=== PATIENT | male | born 1950 | race Caucasian/White ===

== ENCOUNTER 2020-12-05 10:25 | Observation (INO) | payer MEDICARE, BC ==
[~2020-12-05] VITALS: Ht 170.2 cm; Wt 75.6 kg
[2020-12-05] MEDS ORDERED: PLEASE ENTER ALLERGIES MC SCH (12:30)
[2020-12-05] MEDS: SODIUM CHLORIDE 0.9% 1,000 ML IV SCH ×2 (12:30→21:40)
[2020-12-05] MEDS ORDERED: CEFAZOLIN PMX 1GM/50ML 50 ML IVPB ONE (12:30)
[2020-12-05] MEDS ORDERED: PLEASE ENTER HEIGHT AND WEIGHT MC SCH (12:30)
[2020-12-05] MEDS ORDERED: ASPI81TA45 PO (12:40)
[2020-12-05] MEDS ORDERED: TORS20TA2 PO (12:40)
[2020-12-05] MEDS ORDERED: SPIR25TA5 PO (12:40)
[2020-12-05] MEDS ORDERED: CARV12.52 PO (12:40)
[2020-12-05] MEDS ORDERED: POTA10TA PO (12:40)
[2020-12-05] MEDS ORDERED: OMEG-170 PO (12:40)
[2020-12-05] MEDS ORDERED: TERA2CAP3 PO (12:40)
[2020-12-05] MEDS ORDERED: ROSU5TAB PO (12:40)
[2020-12-05] MEDS ORDERED: CHOL10003 PO (12:40)
[2020-12-05] MEDS ORDERED: MULT-717 PO (12:40)
[2020-12-05] MEDS ORDERED: WARF7.5T46 PO (12:40)
[2020-12-05] MEDS ORDERED: MAGN400T36 PO (12:45)
[2020-12-05] MEDS ORDERED: METF500T17 PO (12:45)
[2020-12-05] MEDS ORDERED: FLUT1AER INH (12:45)
[2020-12-05 12:50] VITALS: BP 112/72
[2020-12-05 13:25] LABS: BASOPHILS % (AUTO) 1 % (0-1); EOSINOPHILS % (AUTO) 2 % (1-7); LYMPHOCYTES % (AUTO) 25 % (22-44); MEAN CORPUSCULAR HEMOGLOBIN 29.1 pg (27.5-34.5); MEAN CORPUSCULAR HGB CONC 34.2 g/dL (33.2-36.2); MONOCYTES % (AUTO) 9 % (2-9); NEUTROPHILS % (AUTO) 64 % (42-75); PLATELET COUNT 183 x10^3/uL (130-400); RED BLOOD COUNT 5.17 x10^6/uL (4.38-5.82)
[2020-12-05 13:33] LABS: ANION GAP 8 mmol/L (5-15); CALCIUM 8.7 mg/dL (8.5-10.1); CHLORIDE 103 mmol/L (98-107); CREATININE 0.89 mg/dL (0.7-1.3); INTERNATIONAL NORMALIZED RATIO 1.44 (0.93-1.1); PROTHROMBIN TIME 15.1 Seconds (9.6-11.5)
[2020-12-05] MEDS ORDERED: MIDAZOLAM 1 MG/ML, 5ML ONE (15:32)
[2020-12-05] MEDS ORDERED: FENTANYL PF 100 MCG/2ML ONE (15:33)
[2020-12-05] MEDS ORDERED: CEFAZOLIN 1,000 MG ONE (15:33)
[2020-12-05] MEDS ORDERED: LIDOCAINE 2%, 20ML ONE (15:33)
[2020-12-05] MEDS ORDERED: CEFAZOLIN PMX 1GM/50ML 50 ML ONE (15:33)
[2020-12-05] MEDS ORDERED: HYDROcodone/APAP 5/325 TABLET PO PRN (17:00)
[2020-12-05] MEDS ORDERED: HOLD MEDICATION MC PRN (17:00)
[2020-12-05] MEDS ORDERED: ZOLPIDEM 5MG TABLET PO PRN (17:00)
[2020-12-05] MEDS ORDERED: ACETAMINOPHEN 325 MG TABLET PO PRN (17:00)
[2020-12-05 19:02] VITALS: BP 104/70
[2020-12-05] MEDS ORDERED: ATORVASTATIN 20 MG TABLET PO SCH (21:00)
[2020-12-05] MEDS: CHOLECALCIFEROL 1,000 UNIT TABLET PO SCH (21:00)
[2020-12-05] MEDS: OMEGA-3/FISH OIL CAPSULE PO SCH (21:40)
[2020-12-05] MEDS: metFORMIN 500 MG TABLET PO SCH (21:41)
[2020-12-05] MEDS: CARVEDILOL 12.5 MG TABLET PO SCH (21:41)
[2020-12-05] MEDS: TORSEMIDE 20 MG TABLET PO SCH (21:42)
[2020-12-05] MEDS: SODIUM CHLORIDE FLUSH 10ML SYR IVF SCH (21:45)
[2020-12-05] MEDS: CEFAZOLIN PMX 1GM/50ML 50 ML IVPB SCH (23:22)
[2020-12-06 01:28] VITALS: BP 124/84
[2020-12-06] MEDS: OMEGA-3/FISH OIL CAPSULE PO SCH (08:00)
[2020-12-06] MEDS: metFORMIN 500 MG TABLET PO SCH (08:01)
[2020-12-06] MEDS: TORSEMIDE 20 MG TABLET PO SCH (08:02)
[2020-12-06] MEDS: CARVEDILOL 12.5 MG TABLET PO SCH (08:03)
[2020-12-06] MEDS: TERAZOSIN 2MG CAPSULE PO SCH ×2 (08:03→09:00)
[2020-12-06] MEDS: CEFAZOLIN PMX 1GM/50ML 50 ML IVPB SCH (08:05)
[2020-12-06] MEDS: SODIUM CHLORIDE FLUSH 10ML SYR IVF SCH (08:06)
[2020-12-06] MEDS: CHOLECALCIFEROL 1,000 UNIT TABLET PO SCH (08:06)
[2020-12-06 08:07] VITALS: BP 117/82
[2020-12-06] MEDS ORDERED: ASPIRIN 81 MG TABLET EC PO SCH (09:00)
[2020-12-06] MEDS ORDERED: MULTIVITAMINS/MINERALS TABLET PO SCH (09:00)
[2020-12-06] MEDS ORDERED: FLUTICASONE/VILANTEROL 100-25MCG/INH INH SCH (09:00)
[2020-12-06] MEDS ORDERED: SPIRONOLACTONE 25 MG TABLET PO SCH (09:00)
[2020-12-06] MEDS ORDERED: MAGNESIUM OXIDE 400 MG TABLET PO SCH (09:00)
== END 2020-12-06 13:00 | disposition home or self-care (01) ==
LOC: CACL 10:25 → 5SO 16:40 → CACL 17:53 → 5SO 23:18
PROVIDERS: ADMIT Internal Medicine Cardiovascular Disease; ATTEND Internal Medicine Cardiovascular Disease
DX: I44.2 Atrioventricular block, complete (principal); I48.20 Chronic atrial fibrillation, unspecified; I42.9 Cardiomyopathy, unspecified; I25.10 Atherosclerotic heart disease of native coronary artery without angina pectoris; I11.0 Hypertensive heart disease with heart failure; I50.22 Chronic systolic (congestive) heart failure; E11.9 Type 2 diabetes mellitus without complications; J44.9 Chronic obstructive pulmonary disease, unspecified; N40.0 Benign prostatic hyperplasia without lower urinary tract symptoms; E78.5 Hyperlipidemia, unspecified; Z79.899 Other long term (current) drug therapy
CPT/HCPCS: 33207; 36415; 71045; 71046; 80048; 85025; 85610; 93005; 96365; 96366; 99156; 99157; C1779; C1786; C1892; G0378; J0690; J2250; J3010